=== PATIENT | female | born 1960 | race Caucasian/White ===

== ENCOUNTER 2021-02-08 10:25 | Inpatient (IN) ==
[2021-02-08] MEDS ORDERED: Isovue-370 500 ML BOTTLE IVP ONE (11:33)
[2021-02-08 11:42] LABS: Basophils % 0.4 %; Eosinophils # 0.1 K/mcL (0.0-0.6); Eosinophils % 1.2 %; Hemoglobin 12.9 g/dL (11.5-15.4); Immature Granulocytes % 0.3 % (0-4); Lymphocytes # 1.5 K/mcL (0.6-4.6); Lymphocytes % 16.9 %; Mean Corpuscular HGB Conc 33.1 g/dL (31.6-35.5); Mean Corpuscular Hemoglobin 29.5 pg (28.0-33.3); Mean Corpuscular Volume 89.2 fL (83.0-100.0); Mean Platelet Volume 10.1 fL (9.4-12.4); Monocytes # 0.7 K/mcL (0.0-1.3); Monocytes % 8.2 %; Neutrophils # 6.5 K/mcL (1.6-8.9); Platelet Count 230 K/mcL (140-400); Red Blood Count 4.37 M/mcL (3.82-4.97); White Blood Count 8.9 K/mcL (4.3-11.1)
[2021-02-08] MEDS ORDERED: Ondansetron 4 MG/2 ML VIAL IVP ONE (11:49)
[2021-02-08] MEDS ORDERED: Ketorolac 15 MG/ML VIAL IVP ONE (11:49)
[2021-02-08 11:53] LABS: Bacteria,Urine Few per hpf (None-Few); Bilirubin,Urine Negative (Negative); Blood,Urine Moderate (Negative); Clarity,Urine Turbid (Clear); Color,Urine Light-Yellow (Yellow); Glucose,Urine (UA) Normal (Normal); Ketones,Urine Negative (Negative); Leukocyte Esterase,Urine Large (Negative); Mucus,Urine Few per lpf (None-Few); Nitrite,Urine Negative (Negative); PH,Urine 7.5 pH Units (5.0-8.0); Protein,Urine Negative (Neg-Trace); Specific Gravity,Urine 1.009 (1.010-1.025); Squamous Epithelial Cell,Urine Few per hpf (None-Few); Urobilinogen,Urine Normal (Normal); WBC,Urine TNTC per hpf (0-3)
[2021-02-08 12:03] LABS: BUN/Creatinine Ratio 17 (6-26); Blood Urea Nitrogen 14 mg/dL (6-20); Calcium 9.7 mg/dL (8.6-10.3); Carbon Dioxide 27 mEq/L (23-29); Chloride 102 mEq/L (98-107); Glucose 94 mg/dL (70-105); Osmolality,Calculated 282 (280-300); Potassium 4.1 mEq/L (3.5-5.1); Sodium 136 mEq/L (136-145); eGFR For African Americans > 60 (> 60); eGFR For Non-African Americans > 60 (> 60)
[2021-02-08 12:09] LABS: Alanine Aminotransferase 36 Units/L (7-52); Albumin 4.5 g/dL (3.5-5.7); Albumin/Globulin Ratio 1.4 (1.1-2.2); Alkaline Phosphatase 173 Units/L (34-104); Aspartate Amino Transferase 27 Units/L (13-39); Bilirubin,Direct 0.2 mg/dL (0.0-0.2); Bilirubin,Indirect 0.6 mg/dL (0.0-1.0); Bilirubin,Total 0.8 mg/dL (0.3-1.0); Globulin 3.3 g/dL (2.4-3.5); Total Protein 7.8 g/dL (6.4-8.9)
[2021-02-08] MEDS ORDERED: cefTRIAXone 250 MG VIAL IM ONE (15:39)
[2021-02-08] MEDS ORDERED: Doxycycline 100 MG CAPSULE PO ONE (15:39)
[2021-02-08 16:47] LABS: Candida DNA Not Detected (Not Detect); Gardnerella DNA Not Detected (Not Detect); Trichomonas DNA Not Detected (Not Detect)
[2021-02-08] MEDS ORDERED: Piperacillin/Tazobactam 3.375 GM in 0.9 % Sodium Chloride Mini Bag 100 ML IVPB STA (17:56)
[2021-02-08] MEDS ORDERED: Gadolinium Contrast Agent (WT Based) IV PRN (18:19)
[2021-02-08] MEDS ORDERED: Naloxone 0.4 MG/ML INJ IVP PRN (19:24)
[2021-02-08] MEDS ORDERED: Ondansetron 4 MG/2 ML VIAL IVP PRN (19:24)
[2021-02-08] MEDS: 0.9 % Sodium Chloride 1,000 ML IVC SCH (20:40)
[2021-02-08] MEDS: Doxycycline 100 MG CAPSULE PO SCH (20:41)
[2021-02-08] MEDS: cefOXitin 2,000 MG in Water for inj. (sterile) 20 ML IVP SCH (20:41)
[2021-02-08] MEDS ORDERED: Melatonin 3 MG TABLET PO PRN (21:00)
[2021-02-09] MEDS: cefOXitin 2,000 MG in Water for inj. (sterile) 20 ML IVP SCH ×4 (00:26→17:25)
[2021-02-09 02:41] LABS: Basophils % 0.5 %; Eosinophils # 0.1 K/mcL (0.0-0.6); Eosinophils % 1.5 %; Hematocrit 35.2 % (35.3-44.9); Hemoglobin 11.6 g/dL (11.5-15.4); Immature Granulocytes % 0.1 % (0-4); Lymphocytes # 1.3 K/mcL (0.6-4.6); Lymphocytes % 15.8 %; Mean Corpuscular Hemoglobin 28.9 pg (28.0-33.3); Mean Corpuscular Volume 87.8 fL (83.0-100.0); Mean Platelet Volume 10.6 fL (9.4-12.4); Monocytes # 0.7 K/mcL (0.0-1.3); Platelet Count 191 K/mcL (140-400); Red Blood Count 4.01 M/mcL (3.82-4.97); Red Cell Distribution Width 12.1 % (11.5-14.5); Segmented Neutrophils % 73.1 %; White Blood Count 8.2 K/mcL (4.3-11.1)
[2021-02-09] MEDS: *HR* HYDROmorphone (PF) 1 MG/ML SYRINGE IVP PRN (02:56)
[2021-02-09 03:00] LABS: BUN/Creatinine Ratio 19 (6-26); Blood Urea Nitrogen 16 mg/dL (6-20); Calcium 8.7 mg/dL (8.6-10.3); Carbon Dioxide 24 mEq/L (23-29); Chloride 105 mEq/L (98-107); Glucose 85 mg/dL (70-105); Osmolality,Calculated 284 (280-300); Potassium 3.7 mEq/L (3.5-5.1); Sodium 137 mEq/L (136-145); eGFR For African Americans > 60 (> 60); eGFR For Non-African Americans > 60 (> 60)
[2021-02-09] MEDS: 0.9 % Sodium Chloride 1,000 ML IVC SCH (05:41)
[2021-02-09] MEDS: *HR* Heparin 5,000 UNIT/ML VIAL SQ SCH ×2 (06:16→17:23)
[2021-02-09] MEDS: BuPROPion SR (12 HR) 150 MG TABLET PO SCH ×2 (08:38→21:49)
[2021-02-09] MEDS: Doxycycline 100 MG CAPSULE PO SCH ×2 (08:38→21:50)
[2021-02-09] MEDS: *HR* HYDROcodone/Acet 5/325 mg TABLET PO PRN ×3 (08:41→21:55)
[2021-02-09] MEDS: polyethylene glycoL 3350 17 GM POWD.PACK PO SCH (14:05)
[2021-02-09] MEDS: Sennosides 8.6 MG TABLET PO SCH (14:06)
[2021-02-10] MEDS: cefOXitin 2,000 MG in Water for inj. (sterile) 20 ML IVP SCH ×4 (00:29→17:16)
[2021-02-10] MEDS: *HR* HYDROcodone/Acet 5/325 mg TABLET PO PRN (04:38)
[2021-02-10] MEDS: *HR* Heparin 5,000 UNIT/ML VIAL SQ SCH ×2 (06:38→17:12)
[2021-02-10] MEDS: Sennosides 8.6 MG TABLET PO SCH (09:33)
[2021-02-10] MEDS: BuPROPion SR (12 HR) 150 MG TABLET PO SCH ×2 (09:34→20:13)
[2021-02-10] MEDS: polyethylene glycoL 3350 17 GM POWD.PACK PO SCH (09:34)
[2021-02-10] MEDS: Doxycycline 100 MG CAPSULE PO SCH ×2 (09:34→20:13)
[2021-02-10] MEDS: Acetaminophen 325 MG TABLET PO PRN (18:46)
[2021-02-10] MEDS: *HR* HYDROmorphone (PF) 1 MG/ML SYRINGE IVP PRN (22:00)
[2021-02-11] MEDS: cefOXitin 2,000 MG in Water for inj. (sterile) 20 ML IVP SCH ×2 (00:34→05:55)
[2021-02-11] MEDS: *HR* Heparin 5,000 UNIT/ML VIAL SQ SCH (05:56)
[2021-02-11 06:28] VITALS: BP 109/71
[2021-02-11 06:40] LABS: Basophils % 0.3 %; Eosinophils # 0.1 K/mcL (0.0-0.6); Hematocrit 32.7 % (35.3-44.9); Hemoglobin 10.8 g/dL (11.5-15.4); Immature Granulocytes % 0.3 % (0-4); Lymphocytes # 0.8 K/mcL (0.6-4.6); Lymphocytes % 9.1 %; Mean Corpuscular Hemoglobin 29.3 pg (28.0-33.3); Mean Corpuscular Volume 88.9 fL (83.0-100.0); Mean Platelet Volume 9.8 fL (9.4-12.4); Monocytes # 0.6 K/mcL (0.0-1.3); Monocytes % 6.3 %; Neutrophils # 7.6 K/mcL (1.6-8.9); Platelet Count 211 K/mcL (140-400); Red Blood Count 3.68 M/mcL (3.82-4.97); Red Cell Distribution Width 11.9 % (11.5-14.5); White Blood Count 9.2 K/mcL (4.3-11.1)
[2021-02-11 06:56] LABS: BUN/Creatinine Ratio 12 (6-26); Blood Urea Nitrogen 11 mg/dL (6-20); Calcium 8.8 mg/dL (8.6-10.3); Carbon Dioxide 24 mEq/L (23-29); Chloride 102 mEq/L (98-107); Glucose 165 mg/dL (70-105); Osmolality,Calculated 283 (280-300); Potassium 3.7 mEq/L (3.5-5.1); Sodium 135 mEq/L (136-145); eGFR For African Americans > 60 (> 60); eGFR For Non-African Americans > 60 (> 60)
[2021-02-11] MEDS: Acetaminophen 325 MG TABLET PO PRN (07:44)
[2021-02-11] MEDS ORDERED: metroNIDAZOLE 500 MG TABLET PO SCH (09:30)
[2021-02-11] MEDS ORDERED: levoFLOXacin 500 MG TABLET PO SCH (09:30)
[2021-02-11] MEDS: BuPROPion SR (12 HR) 150 MG TABLET PO SCH (09:52)
[2021-02-11] MEDS: Sennosides 8.6 MG TABLET PO SCH (09:53)
[2021-02-11] MEDS: Doxycycline 100 MG CAPSULE PO SCH (09:53)
[2021-02-11] MEDS: polyethylene glycoL 3350 17 GM POWD.PACK PO SCH (09:54)
== END 2021-02-11 12:32 | disposition home or self-care (01) | DRG 872 ==
LOC: EMEROOARM 10:25 → 3ANU 10:25 → SUATTDRO 18:36 → 3ANU 20:14
PROVIDERS: ADMIT Internal Medicine; ATTEND Internal Medicine